=== PATIENT | male | born 1955 | race Caucasian/White ===

== ENCOUNTER 2016-07-12 16:49 | Emergency (ER) | payer OTHER ==
[2016-07-12 17:04] VITALS: BP 160/97
--- NOTE | 2016-07-12 17:19 | UC ---
Hand/Wrist HPI - HPI Summary HPI Summary: 61 yo male slipped on ice this AM and sustained a FOOSH injury right wrist. He is right handed - History Of Current Complaint Chief Complaint: UCUpperExtremity Stated Complaint: WRIST INJURY Time Seen by Provider: 07/12/16 17:06 Hx Obtained From: Patient Onset/Duration: Sudden Onset Severity Initially: Mild Severity Currently: Mild Pain Intensity: 4 Pain Scale Used: 0-10 Numeric Character Of Pain: Dull, Aching Aggravating Factor(s): Movement Alleviating: Rest, OTC Meds Associated Signs And Symptoms: Positive: Negative Related History: Dominant Hand Right - Allergies/Home Medications Allergies/Adverse Reactions: Allergies Allergy/AdvReac Type Severity Reaction Status Date / Time No Known Allergies Allergy Verified 07/12/16 16:57 Home Medications: Home Medications Acetaminophen TAB* [Tylenol TAB*] 1 tab PRN 07/12/16 [History] Aspirin EC Low Dose* [Ecotrin EC Low Dose*] 1 tab DAILY 07/12/16 [History Confirmed 07/12/16] Ibuprofen TAB* [Advil TAB*] 1 tab PRN 07/12/16 [History] Lisinopril/HCTZ 10/12.5(NF) [Zestoretic 10/12.5(NF)] 1 tab DAILY 07/12/16 [ History Confirmed 07/12/16] PMH/Surg Hx/FS Hx/Imm Hx Previously Healthy: Yes Endocrine History Of: Denies: Diabetes, Thyroid Disease Cardiovascular History Of: Reports: Hypertension Denies: Cardiac Disorders, Pacemaker/ICD Respiratory History Of: Denies: COPD, Asthma GI/ History Of: Denies: Ulcer, Renal Disease - Surgical History Surgical History: Yes Surgery Procedure, Year, and Place: Tonsilectomy - Family History Known Family History: Positive: Hypertension - Social History Alcohol Use: Rare Substance Use Type: None Smoking Status (MU): Never Smoked Tobacco Review of Systems Constitutional: Negative Skin: Negative Eyes: Negative ENT: Negative Respiratory: Negative Cardiovascular: Negative Gastrointestinal: Negative Genitourinary: Negative Motor: Negative Neurovascular: Negative Musculoskeletal: Arthralgia Neurological: Negative Psychological: Negative All Other Systems Reviewed And Are Negative: Yes Physical Exam Triage Information Reviewed: Yes Appearance: Well-Appearing, No Pain Distress, Well-Nourished Vital Signs: Initial Vital Signs Temp 98.8 F 07/12/16 17:00 Pulse 118 07/12/16 17:00 Resp 18 07/12/16 17:00 BP 160/97 07/12/16 17:00 Pulse Ox 100 07/12/16 17:00 Vital Signs Reviewed: Yes Eyes: Positive: Conjunctiva Clear ENT: Positive: Hearing grossly normal. Negative: Nasal congestion, Nasal drainage, Tonsillar exudate, Trismus, Muffled/hoarse voice Dental: Negative: Dental Fracture @ Neck: Positive: Supple Respiratory: Positive: Lungs clear, Normal breath sounds, No respiratory distress, No accessory muscle use Cardiovascular: Positive: RRR, No Murmur, Pulses Normal Bowel Sounds: Positive: Present Musculoskeletal: Positive: ROM Limited @ - right wrist Neurological: Positive: Alert Psychological: Positive: Normal Response To Family Skin Exam: Normal Hand/Wrist Course/Dx - Differential Dx/Diagnosis Provider Diagnoses: RIGHT WRIST SPRAIN-SUSPECTED TEAR OF THE RADIOULNAR LIGAMENT Discharge - Discharge Plan Condition: Stable Disposition: HOME Patient Education Materials: Wrist Sprain (ED) Referrals: Fredrick Ling MD [Medical Doctor] - As Soon As Possible (call in AM) Additional Instructions: YOUR XR SHOWED WIDENING OF THE DISTAL RADIOULNAR JOINT I SUSPECT YOU HAVE TORN SOME LIGAMENTS YOU MAY NEED AN MRI ELEVATE THUMB SPICA SPLINT TYLENOL OR ADVIL FOR PAIN Images Hands: 1 - tender
--- NOTE | 2016-07-12 17:51 | RAD ---
INDICATION: Right wrist injury. TECHNIQUE: 4 views of the right wrist were obtained. FINDINGS: There is widening of the distal radioulnar joint. The joint spaces otherwise maintained. No fracture is seen. IMPRESSION: WIDENING OF THE DISTAL RADIOULNAR JOINT CONSISTENT WITH EITHER ACUTE OR CHRONIC INJURY. IF THE PATIENT HAS SYMPTOMS OVER THIS REGION THEN RECOMMEND AN MRI OF THE WRIST FOR FURTHER EVALUATION.
== END 2016-07-12 18:30 | disposition home or self-care (01) ==
LOC: UCEAST 16:49
DX: S63.501A Unspecified sprain of right wrist, initial encounter (principal); W00.0XXA Fall on same level due to ice and snow, initial encounter; Y93.9 Activity, unspecified; Y92.9 Unspecified place or not applicable; I10 Essential (primary) hypertension
CPT/HCPCS: 99212; G0463

== ENCOUNTER → 2016-07-23 11:02 | Day surgery (SDC) | payer OTHER ==
[~2016-07-23 11:02] MED LIST: Acetaminophen TAB* 325 MG PO PRN; Bupivacaine 0.25% SDV* 30 ML ONE; Dexamethasone IV* 4 MG/ML 1 ML (4 MG) ONE; DiMENhydriNATE IV* 50 MG/ML VIAL IV PUSH PRN; EPHEDrine (Pressors)* 50 MG/ML VIAL ONE; Famotidine IV* 10 MG/ML 2 ML (20 mg) IV ONE; Famotidine IV* 10 MG/ML 2 ML (20 mg) ONE; HYDROcodone/ACETAMIN 5-325 MG* 1 TAB PO PRN; HYDROmorphone INJ* 1 MG/ML CARPUJECT SYRINGE IV PRN; Ketorolac INJ* 30 MG/ML 1 ML VIAL ONE; Lidocaine 2% PF * 5 ML VIAL ONE; Midazolam* 1 MG/ML 2 ML VIAL (2 MG) ONE; Ondansetron INJ* 2 MG/ML VIAL IV PRN; PROCHLORPERAZINE INJ 5 MG/ML 2 ML VIAL IV PRN; PROCHLORPERAZINE INJ 5 MG/ML 2 ML VIAL ONE; Propofol* 10 MG/ML 20 ML BTL IV PUSH ONE; ceFAZolin 2 GM PREMIX (*) 2 GM/50 ML BAG IVPB ONE; fentaNYL* 50 MCG/ML 2 ML VIAL (100 MCG VIAL) IV PRN; fentaNYL* 50 MCG/ML 2 ML VIAL (100 MCG VIAL) ONE
[2016-07-23 18:39] VITALS: BP 144/92
--- NOTE | 2016-07-25 13:34 | RAD ---
INDICATION: Right wrist arthroscopy, pain, trauma COMPARISONS: July 12, 2016 TECHNIQUE: Fluoroscopy was provided for a surgical procedure. Total fluoroscopy time is: 8 seconds FINDINGS: Spot images demonstrate percutaneous fixation of the distal radius and ulna IMPRESSION: FLUOROSCOPY WAS PROVIDED FOR A SURGICAL PROCEDURE CPT II Codes: 6045F
--- NOTE | 2016-07-26 06:22 | OP ---
DATE OF OPERATION: 07/23/16 - [facility] DATE OF : 59 SURGEON: Fredrick Boles MD RN MATERNAL CHILD: SUSANNA Rosen ANESTHESIOLOGIST: Dr. Sellers. ANESTHESIA: General. PRE-OP DIAGNOSIS: Right wrist peripheral triangular fibrocartilage complex tear with distal radial ulnar joint instability. POST-OP DIAGNOSES: 1. Right wrist peripheral triangular fibrocartilage complex tear. 2. Right wrist central triangular fibrocartilage complex tear in the sagittal plane. 3. Right wrist significant crystal deposition disease. 4. 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 OPERATIVE PROCEDURE: 1. Diagnostic right wrist arthroscopy. 2. Arthroscopic partial synovectomy, right wrist. 3. Arthroscopic debridement of central triangular fibrocartilage complex tear, right wrist. 4. Posterior interosseus nerve neurectomy at the level of the dorsal wrist. 5. Right wrist arthrotomy with biopsy of synovium and crystal deposition disease. 6. Open treatment of right wrist distal radioulnar joint dislocation with radioulnar pinning. 7. Right wrist distal radioulnar joint arthrotomy with open triangular fibrocartilage complex repair INDICATIONS: Alexandro is a 61-year-old male who had a fall on . He went to the emergency room due to significant pain, swelling, and ecchymosis. X-rays showed 5 mm of widening of the distal radial ulnar joint. I saw him in the clinic a couple of days later and got some contralateral comparison films which showed significant widening on the right side of the DRUJ joint. I had gotten an MRI which showed detachment of the TFCC from its foveal insertion and instability at the DRUJ with anterior gapping at the DRUJ joint. We had talked about risks and benefits. We certainly discussed the risks of postoperative stiffness and continued pain. He had elected to proceed with surgery. EBL: 20 mL. COMPLICATIONS: None. FINDINGS: Significant amount of crystalline-appearing deposits in the right wrist joint. The arthroscopic portion of the procedure showed stage III Irma instability at the scapholunate joint and some tearing of the membranous and proximal dorsal portion of the scapholunate interosseus ligament. There was also a central tear of the TFCC in the sagittal plane. The volar and dorsal attachments of the radioulnar ligaments appeared to be intact off the radius. There was a peripheral tear. DESCRIPTION OF PROCEDURE: Alexandro was seen in the preoperative holding area and the correct site and side were marked. We came back to the operating room where the anesthesia was induced and the arm was prepped and draped in the usual fashion and with wrist placed using the fingertraps and the Acumed arthroscopic traction tower. The formal time-out was performed. I then went ahead and exsanguinated the arm and inflated the tourniquet to 250 mmHg. The 3- 4 and 4-5 portals were established in standard fashion with use of a 15 blade and then the mosquito followed by the blunt trocar. The camera was placed into the 3-4 portal and the diagnostic arthroscopy was initiated. There was abundant dorsal synovium that was hemorrhagic. There was hematoma encountered inside the joint. I had introduced the shaver through the 4-5 portal to perform a partial dorsal synovectomy and a debridement and the joint noted to obtain adequate visualization. Once I had the wrist cleaned up, I was able to examine the volar extrinsic ligaments and these were then tacked. The cartilage surfaces on the scaphoid and lunate and distal radius looked good. I then swung over distally and encountered a 3- or 4-mm central tear in the TFCC in the sagittal plane. This was full thickness. I examined the anterior and dorsal attachments off the radius of the radioulnar ligaments. These appeared to be intact to me. The shaver was introduced again and the center of TFCC tear was debrided back to stable margins. I used the probe and there was polly laxity and in the TFCC. With trampoline testing with the probe, I moved up and down several millimeters and which was very loose and lax. Peripheral TFCC tear was noted. I then went ahead and established the mid carpal portals using standard technique. With the camera in the more radial portal and the probe introduced through the ulnar portal, I was able to examine the scapholunate and the lunotriquetral intervals. There was no instability of lunotriquetral joint. There was pretty significant instability of the scapholunate interval. I was almost able to but not quite able to pass the camera through the articulation. I ultimately classified this as significant stage III instability. At this point, I was concerned for given my findings in the radiocarpal joint and in the mid carpal joint for a possible concomitant scapholunate ligament tear. I went ahead and removed all the arthroscopic equipment and handed off the tower. The tourniquet was deflated. I discussed with the patient's about surgically examining the scapholunate ligament and so at this point, we went ahead. At this point, I went ahead a made a standard dorsal midline approach to the dorsal wrist coming just incorporating the 3-4 and mid carpal portal and brining the incision back in line the third metacarpal and dorsal distal radius. Dissection was carried down and full thickness flaps were raised off the extensor retinaculum. The extensor retinaculum over the third dorsal compartment was released. The EPL tendon was retracted radially after being freed up. The extensor retinacular flap was raised ulnarly. The fourth dorsal compartment tendons were retracted out of the way. The fifth dorsal compartment was similarly opened and the EDM tendon was retracted. The posterior and osseus nerve was encountered and did go ahead and excised a 2-cm segment of the distal nerve to aid in postoperative pain relief. An arthrotomy was made over the scapholunate articulation in T-shaped fashion to expose the proximal pole of the scaphoid and the dorsal aspect of the lunate. Care was taken not to injure the lunate ligament and raising up the capsule flaps. After arthrotomy, abundant deposition material had the appearance of crystalline deposits were encountered. It was really quite copious. I went ahead and took the rongeur and removed all of this crystalline deposits as well as some of the synovium there. I continued out this until I had the dorsal aspect of the wrist clean and free of all of this deposition disease. This was sent off for biopsy and analysis. I was then able to inspect the dorsal aspect of the scapholunate ligament in its entirety. Ultimately, it was degenerative and attenuated but it was not torn off after its attachment to the proximal pole of the radius or the lunate and so given his findings of what looked like crystalline deposition disease, I went ahead and decided not to do any further reconstructive efforts for the ligament. I closed the arthrotomy with some 3-0 Ethibond suture. At this point, I turned by attention ulnarly. An L-shaped arthrotomy was made exposing the distal radial ulnar joint and the TFCC. I mobilized the TFCC both distally and proximally. It was frankly detached from its insertion at the fovea. I cleaned up all of the scar tissue that was forming with a knife and then prepared further the bed of the bleeding bone with the rongeur and created a nicer recipient site for the TFCC repair. I then dislocated the DRUJ dorsally and a 0.062 K-wire was used to make two parallel drill holes through the fovea exiting out the subcutaneous border of the distal ulna proximally. I made a 2-cm longitudinal incision over the exit site of the pins. I then used Pak suture passer and some suture shuttles to pass two size 0 Ti-Cron sutures through my bony tunnels that I created with the K-wires. These were both passed through the TFCC in horizontal mattress-type fashion. One suture was placed a little bit more radial and the other suture brought through the more peripheral ulnar aspect of the TFCC. At this point, I pulled on the suture tails and excellent apposition of the TFCC into the fovea on the ulna was achieved. The DRUJ was reduced and the soft tissue was freed up around the suture tails to make sure that there was no grabbing of the dorsal ulnar sensory nerve as I then sequentially tied down to my two Ti-Cron sutures to complete the TFCC repair. I then went ahead just to aid in some additional stability to allow the soft tissues to heal and went ahead and pinned the distal ulna to the distal radius just proximal to the DRUJ with two parallel 0.062 K-wires. The wounds were then irrigated. The fluoroscopic images confirmed nice alignment of the DRUJ and that the gap between the distal radius and ulna had been closed down. I went ahead and irrigated the wound. The arthrotomy was closed with some 3-0 Ethibond suture. I brought my retinacular flap back and left the EDM tendon transposed dorsally to the retinacular flap. To further aid in stabilizing the DRUJ, I placed two 3-0 Ethibond sutures off the remaining soft tissue attachments on the radius just on the dorsal aspect of the DRUJ and sew these down through the extensor retinaculum flap in horizontal mattress-type fashion to aid in stabilizing the joint. The rest of the extensor retinaculum flap was then brought dorsal to the EDC. The EPL tendon was left transposed into the subcutaneous tissue. The extensor retinaculum was closed with some 3-0 Ethibond suture. The skin was then approximated with 3-0 Polysorb suture, closed with some 4-0 nylon suture. 0.25 % Marcaine was infiltrated into the operative area. The pins were clipped and bent in standard fashion. Wounds were dressed with Xeroform, 4x4's, sterile Webril, and a sugar-tong splint was applied. Tourniquet was deflated. It had been reinflated prior to making the dorsal incision to the wrist. There was a 10-minute tourniquet holiday during that period. The patient was then woken back up and taken to the recovery room in stable condition. [id number]/CPS #: [id number] RONEL
== END | disposition home or self-care (01) ==
LOC: OREAST 11:02
PROVIDERS: ATTEND Orthopaedic Surgery Hand Surgery
DX: S63.501A Unspecified sprain of right wrist, initial encounter (principal); I10 Essential (primary) hypertension; W19.XXXA Unspecified fall, initial encounter; Y92.9 Unspecified place or not applicable
CPT/HCPCS: 88161; 88304; C1776; J0690; J0780; J1100; J1885; J2250; J2704; J3010

== ENCOUNTER 2017-01-19 10:30 | Emergency (ER) | payer OTHER ==
[2017-01-19 10:38] VITALS: BP 155/90
--- NOTE | 2017-01-19 12:43 | UC ---
Fan Del Rosario Angela, scribed for Jaja Chen DO on 01/19/17 at 1106 . Skin Complaint HPI - HPI Summary HPI Summary: 61 y/o male presents to [facility] c/o rashes on the back of his left knee since last night. Pt describes his rashes as mildly pruritic and red. He reports he has the same sensation as prior poison kal[place] but denies spending time in the [place] for the last couple of weeks. 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 Pt denies any rash involvement of other body parts, chest pain, SOB, cough, fever, chills, vomiting , nausea, headaches. - History of Current Complaint Chief Complaint: UCSkin Time Seen by Provider: 01/19/17 10:46 Stated Complaint: BUG BITES Hx Obtained From: Patient Onset/Duration: Sudden Onset Timing: Constant Current Severity: Mild Pain Intensity: 0 - Non-painful but pruritic Pain Scale Used: 0-10 Numeric Location: Other - Behind left knee Character: Pruritus, Redness Aggravating: Nothing Alleviating: Nothing Associated Signs & Symptoms: Positive: Rash. Negative: Nausea, Vomiting, Diaphoresis, Difficulty Breathing, Fever, Chills, Cough, Chest Pain, Hoarseness , Throat Tightening, Abdominal Pain, Lightheadedness, Syncope, Tenderness - Allergy/Home Medications Allergies/Adverse Reactions: Allergies Allergy/AdvReac Type Severity Reaction Status Date / Time No Known Allergies Allergy Verified 07/23/16 11:36 Home Medications: Home Medications Ubiquinol 01/19/17 [History] Vitamin B12 01/19/17 [History] Review of Systems Constitutional: Negative Skin: Rash ENT: Negative Respiratory: Negative Cardiovascular: Negative Gastrointestinal: Negative Neurological: Negative All Other Systems Reviewed And Are Negative: Yes - Comments Additional Review of Systems Comments: NEGATIVE: chest pain, SOB, cough, fever, chills, vomiting, nausea, headaches PMH/Surg Hx/FS Hx/Imm Hx Cardiovascular History: Hypertension - Surgical History Surgical History: Yes Surgery Procedure, Year, and Place: Tonsilectomy. COLONOSCOPY X 2, [facility] - Family History Known Family History: Positive: Hypertension - Social History Alcohol Use: Rare Substance Use Type: None Smoking Status (MU): Never Smoked Tobacco Physical Exam Triage Information Reviewed: Yes Appearance: Well-Appearing, No Pain Distress, Well-Nourished Vital Signs: Initial Vital Signs Temp 97.3 F 01/19/17 10:34 Pulse 97 01/19/17 10:34 Resp 18 01/19/17 10:34 BP 155/90 01/19/17 10:34 Pulse Ox 100 01/19/17 10:34 Vital Signs Reviewed: Yes Eyes: Positive: Conjunctiva Clear. Negative: Discharge ENT: Positive: Hearing grossly normal. Negative: Muffled/hoarse voice - Normal voice Neck exam: Normal Neck: Positive: Supple Respiratory: Positive: Lungs clear, Normal breath sounds, No respiratory distress, No accessory muscle use Cardiovascular: Positive: RRR, No Murmur Musculoskeletal Exam: Normal Neurological: Positive: Alert, Muscle Tone Normal Psychological Exam: Normal Psychological: Positive: Age Appropriate Behavior Skin: Positive: rashes - Erythematous rashes on the posterior aspect of left knee. Nontender ecchymosis noted on the posterior aspect of left knee. Course/Dx - Differential Diagnoses - Skin Complaint Differential Diagnoses: Local Allergic Reaction, Scabies, Tick Born Illness, Urticaria, Other - insect bites - Diagnoses Provider Diagnoses: Insect Bite or Sting, elevated bp with dx of htn Discharge - Discharge Plan Condition: Stable Disposition: HOME Patient Education Materials: Insect Bite or Sting (ED) Referrals: Terrence Lerma MD [Primary Care Provider] - () Additional Instructions: Right now the most likely the most likely cause of your rash is bug bites. That said we should keep a close eye on this rash for changes that might indicate other causes. For now, we will try it as bug bite with cold compresses and topical agents. Follow up with pcp in 2-4 days . Follow up sooner if symptoms worsen or new symptoms develop. Please follow up with your PCP in 2-4 days regarding your rashes for any changing symptoms. forgot to address bp with pt in clinic. called pt 12:17. informed of elevated bp. pt stated that he has long standing white coat symdrom in pcp office onn first read. always normal on re-check. follow up with pcp. The documentation as recorded by the Fan tenorio Angela accurately reflects the service I personally performed and the decisions made by me, Jaja Chen DO.
== END 2017-01-19 11:47 | disposition home or self-care (01) ==
LOC: UCEAST 10:30
DX: S80.262A Insect bite (nonvenomous), left knee, initial encounter (principal); W57.XXXA Bitten or stung by nonvenomous insect and other nonvenomous arthropods, initial encounter; Y93.9 Activity, unspecified; Y99.9 Unspecified external cause status; I10 Essential (primary) hypertension
CPT/HCPCS: 99211; G0463

== ENCOUNTER 2017-08-04 08:34 | Emergency (ER) | payer OTHER ==
[2017-08-04 08:56] VITALS: BP 159/93
--- NOTE | 2017-08-04 11:28 | UC ---
Elaina Del Rosario Emily, scribed for Jaja Chen DO on 08/04/17 at 0939 . Bite Injury/Animal HPI - HPI Summary HPI Summary: This patient is a 62 year old M presenting to urgent care with a chief complaint of bite wound near the right ear that was noticed this morning. The patient rates the pain 0/10 in severity. Symptoms aggravated by nothing. Symptoms alleviated by nothing. Pt denies fever, chills, nausea, vomiting, and CP. Pt reports being concerned that the bite might be from a bat. - History of Current Complaint Chief Complaint: SAMEERkin Stated Complaint: POSS BITE/LAC Time Seen by Provider: 08/04/17 09:18 Hx Obtained From: Patient Severity Currently: Mild Severity Initially: Mild Pain Intensity: 0 Pain Scale Used: 0-10 Numeric Onset/Duration: Sudden Onset, Lasting Hours, Still Present Aggravating Factor(s): Nothing Alleviating Factor(s): Nothing Animal Control Notified: No - Allergies/Home Medications Allergies/Adverse Reactions: Allergies Allergy/AdvReac Type Severity Reaction Status Date / Time No Known Allergies Allergy Verified 07/23/16 11:36 PMH/Surg Hx/FS Hx/Imm Hx Previously Healthy: No Cardiovascular History: Hypertension Respiratory History: Other Other Respiratory History: Negative asthma - Surgical History Surgical History: Yes Surgery Procedure, Year, and Place: fx right wrist Tonsilectomy. COLONOSCOPY X 2, [facility] - Family History Known Family History: Positive: Hypertension - Social History Occupation: Employed Full-time Lives: With Family Alcohol Use: None Substance Use Type: None Smoking Status (MU): Never Smoked Tobacco Review of Systems Constitutional: Other - Negative fever and chills Skin: Other - Positive bite wound to R ear Cardiovascular: Other - Negative CP Gastrointestinal: Other - Negative nausea and vomiting All Other Systems Reviewed And Are Negative: Yes Physical Exam - Summary Physical Exam Summary: Appearance: Well-Appearing, No Pain Distress, Well-Nourished Eyes: conjunctiva clear, no discharge ENT: Hearing grossly normal, no muffled/hoarse voice. Hearing grossly normal, normal voice Neck: Normal, Supple Respiratory/Lung Sounds: Lungs clear, Normal breath sounds, No respiratory distress, No accessory muscle use Cardiovascular: RRR, No murmur Abdomen (if she checks): Nontender, Soft, no guarding, not distended Bowel Sounds (if she checks): Present Musculoskeletal: Normal Neurological: Alert, muscle tone normal Psychiatric:Normal, age appropriate behavior Skin: Warm, Dry, Normal color, Spot on his wrist where there are two little punctures wound 6 mm apart that could be consistent with a cat claw or some other type similar type of puncture. Triage Information Reviewed: Yes Vital Signs: Initial Vital Signs Temp 97.5 F 08/04/17 08:49 Pulse 86 08/04/17 08:49 Resp 16 08/04/17 08:49 BP 159/93 08/04/17 08:49 Pulse Ox 100 08/04/17 08:49 Vital Signs Reviewed: Yes Bite Injury Course/Dx - Course Course Of Treatment: This patient is a 62 year old M presenting to urgent care with a chief complaint of bite wound near the R ear that was noticed this morning. The patient will be discharged with follow up from PCP. High blood pressure noted. Medications reviewed. Allergies reviewed. - Differential Dx/Diagnosis Provider Diagnoses: Abrasion Discharge - Discharge Plan Condition: Stable Disposition: HOME Patient Education Materials: Abrasion (ED) Referrals: Terrence Lerma MD [Primary Care Provider] - The documentation as recorded by the Elaina tenorio Emily accurately reflects the service I personally performed and the decisions made by , Jaja Chen DO.
== END 2017-08-04 10:20 | disposition home or self-care (01) ==
LOC: UCEAST 08:34
DX: S00.91XA Abrasion of unspecified part of head, initial encounter (principal); S61.539A Puncture wound without foreign body of unspecified wrist, initial encounter; X58.XXXA Exposure to other specified factors, initial encounter; Y93.9 Activity, unspecified; Y92.9 Unspecified place or not applicable; I10 Essential (primary) hypertension
CPT/HCPCS: 99211; G0463

== ENCOUNTER 2018-11-05 17:54 | Emergency (ER) | payer OTHER ==
[2018-11-05 18:28] VITALS: BP 141/87
--- NOTE | 2018-11-05 18:31 | UC ---
Skin Complaint HPI - HPI Summary HPI Summary: 63 yo male presents with abscess to left index finger. He tells me that about 2 weeks ago he was working outdoors with gloves on and a thorn impacted his left hand and went through his glove and punctured his left index finger. Since that time has developed a white pustule to the area. He has tried to drain this at home with a needle and squeezing, but wasn't able to get much out. He is right handed. Denies fever. - History of Current Complaint Chief Complaint: UCSkin Time Seen by Provider: 11/05/18 18:31 Stated Complaint: SORE ON FINGER Hx Obtained From: Patient Onset/Duration: Gradual Onset Onset Severity: Moderate Current Severity: Mild Pain Intensity: 1 Pain Scale Used: 0-10 Numeric - Allergy/Home Medications Allergies/Adverse Reactions: Allergies Allergy/AdvReac Type Severity Reaction Status Date / Time No Known Allergies Allergy Verified 11/05/18 18:27 PMH/Surg Hx/FS Hx/Imm Hx Cardiovascular History: Hypertension - Surgical History Surgical History: Yes Surgery Procedure, Year, and Place: fx right wrist Tonsilectomy. COLONOSCOPY X 2, [facility] - Family History Known Family History: Positive: Hypertension - Social History Lives: With Family Alcohol Use: None Substance Use Type: None Smoking Status (MU): Never Smoked Tobacco - Immunization History Most Recent Tetanus Shot: UNKNOWN Review of Systems All Other Systems Reviewed And Are Negative: Yes Constitutional: Positive: Negative Skin: Positive: Other - Left index finger puncture wound Respiratory: Positive: Negative Cardiovascular: Positive: Negative Neurovascular: Positive: Negative Neurological: Positive: Negative Psychological: Positive: Negative Physical Exam - Summary Physical Exam Summary: GENERAL: NAD. WDWN. No pain distress. SKIN: LEFT INDEX FINGER: Finger pad with 3mm puncture wound with white/yellow pustule. Mildly TTP. No erythema or edema. CHEST: No accessory muscle use. Breathing comfortably and in no distress. CV: Pulses intact. Cap refill <2seconds NEURO: Alert. PSYCH: Age appropriate behavior. Triage Information Reviewed: Yes Vital Signs: Initial Vital Signs Temp 97.8 F 11/05/18 18:23 Pulse 99 11/05/18 18:23 Resp 16 11/05/18 18:23 BP 141/87 11/05/18 18:23 Pulse Ox 100 11/05/18 18:23 Vital Signs Reviewed: Yes Procedures - Incision and Drainage Left Finger Anesthesia: Topical - LET Instrument(s): Scalpel - #11 Packing: Other - None Course/Dx - Course Course Of Treatment: The procedure was explained to the pt and all questions were answered. A time out was performed, witnessed, and signed. The area was cleansed with an alcohol pad. LET gel was applied and let sit for ~20minues and good anesthetization was achieved. A #11 blade was used to dania the central most part of the abscess. Manual pressure was used to express thick white/yellow purulent material. Pt tolerated procedure well. Wound explored and no FB identified. Bandaged with a band-aid. Will place him on keflex for abscess. - Diagnoses Provider Diagnosis: Puncture wound of finger Discharge - Sign-Out/Discharge Documenting (check all that apply): Patient Departure All imaging exams completed and their final reports reviewed: No Studies - Discharge Plan Condition: Stable Disposition: HOME Prescriptions: Cephalexin CAP* [Keflex CAP*] 500 mg PO BID #10 cap Patient Education Materials: Abscess (ED) Referrals: Terrence Lerma MD [Primary Care Provider] - Jorge A King MD [Medical Doctor] - If Needed Additional Instructions: If you develop a fever, shortness of breath, chest pain, new or worsening symptoms - please call your PCP or go to the ED immediately. Your blood pressure was slightly elevated at todays visit. Please see your primary provider within 4 weeks for recheck and re-evaluation. 1) Change the band-aid daily until well healed (likely 3-4 days) 2) If this returns - please schedule an appointment with dermatology for further evaluation - Billing Disposition and Condition Condition: STABLE Disposition: Home
[2018-11-05] MEDS ORDERED: Lidocaine/Epineph/Tetraca GEL* 3 ML GEL IN SYR TOPICAL ONE (18:40)
== END 2018-11-05 19:36 | disposition home or self-care (01) ==
LOC: UCEAST 17:54
DX: L02.512 Cutaneous abscess of left hand (principal); I10 Essential (primary) hypertension
CPT/HCPCS: 10060; 99212; A9270-GY; G0463

== ENCOUNTER 2019-09-30 17:31 | Emergency (ER) | payer OTHER ==
--- NOTE | 2019-09-30 18:23 | UC ---
General HPI - HPI Summary HPI Summary: 64yo male presenting with tick bite on left side of abdomen that he noticed today. Patient states he removed the tick but believes some of it remains in his skin. Believes the tick was attached for 2 days. Denies the tick being engorged. Denies pain but notes some redness where the tick was attached. Denies drainage or bleeding. Denies fever, chills, body aches. Denies n/v. Patient states he "would like to be treated for lyme disease because his had a delayed diagnosis in the past." - History of Current Complaint Chief Complaint: UCSkin Stated Complaint: TICK Hx Obtained From: Patient Pain Intensity: 0 - Allergy/Home Medications Allergies/Adverse Reactions: Allergies Allergy/AdvReac Type Severity Reaction Status Date / Time No Known Allergies Allergy Verified 09/30/19 18:05 Home Medications: Home Medications Aspirin EC TAB* [Ecotrin EC Low Dose 81 MG*] 1 tab PO QAM 07/12/16 [History Confirmed 09/30/19] Lisinopril/HCTZ 03/21.5(NF) [Zestoretic (NF)] 1 tab PO QAM 07/12/16 [ History Confirmed 09/30/19] Astaxanthin 1 tab PO QAM 07/20/16 [History Confirmed 09/30/19] Glucosamine Chondroitin M 1 cap PO QAM 07/20/16 [History Confirmed 09/30/19] Ubiquinol 3 pump PO DAILY 01/19/17 [History Confirmed 09/30/19] Colchicine* [Colcrys*] 0.6 mg PO DAILY PRN 12/24/18 [History Confirmed 09/30/19] Cyanocobalamin TAB* [Vitamin B12 TAB*] 500 mcg PO DAILY 12/24/18 [History Confirmed 09/30/19] Krill Oil 500 mg PO DAILY 12/24/18 [History Confirmed 09/30/19] Ascorbic Acid/Multivit-Min [Emergen-C 1,000 mg Packet] 1,000 mg PO DAILY [History Confirmed 09/30/19] DOXYcycline CAP(*) [DOXYcycline 100MG CAP(*)] 200 mg PO ONCE #2 cap 09/30/19 [Rx ] PMH/Surg Hx/FS Hx/Imm Hx Cardiovascular History: Hypertension - Surgical History Surgical History: Yes Surgery Procedure, Year, and Place: fx right wrist Tonsilectomy. COLONOSCOPY X 2, [facility] - Family History Known Family History: Positive: Hypertension - Social History Alcohol Use: None Substance Use Type: None Smoking Status (MU): Never Smoked Tobacco - Immunization History Most Recent Tetanus Shot: UNKNOWN Review of Systems All Other Systems Reviewed And Are Negative: Yes Constitutional: Positive: Negative Skin: Positive: Other - tick bite left side abdomen Respiratory: Positive: Negative Cardiovascular: Positive: Negative Gastrointestinal: Positive: Negative Musculoskeletal: Positive: Negative Neurological/Mental Status: Positive: Negative Physical Exam - Summary Physical Exam Summary: Vital Signs Reviewed: Yes A+Ox3, no distress Eyes: Conjunctiva Clear ENT: Hearing grossly normal neck: supple Respiratory: Positive: No respiratory distress, No accessory muscle use Cardiovascular: skin color reflect adequate perfusion Musculoskeletal Exam: MILLER x 4 without difficulty Neurological: Positive: Alert, ambulatory without difficulty Psychological: Positive: age appropriate behavior Skin: Positive: ~1.5cm area of erythema on left lower abdomen where tick was attached, no warmth, no drainage, fluctuance, or bleeding, nontender Vital Signs: Vital Signs (72 hours) 09/30/19 18:27 Temperature 98.6 F Pulse Rate 101 Respiratory 16 Rate Blood Pressure 192/103 (mmHg) O2 Sat by Pulse 99 Oximetry Course/Dx - Course Course Of Treatment: I treated patient with prophylactic dose of doxycycline to prevent lyme disease. Discussed with patient that erythema is due to irritation from the bite. Instructed to apply warm compresses to the area if concerned that part of tick is still intact. I educated on s/s of infection and instructed to return or go to ED if any occur. I also educated on lyme disease and instructed to follow up with pcp with any new symptoms. Patient voiced understanding and agreed with treatment plan. I also discussed significantly elevated bp with patient and instructed to follow up with pcp within the next week to have it rechecked. - Diagnoses Provider Diagnosis: Hypertension, Tick bite of abdominal wall Discharge ED - Sign-Out/Discharge Documenting (check all that apply): Patient Departure All imaging exams completed and their final reports reviewed: No Studies - Discharge Plan Condition: Stable Disposition: HOME Prescriptions: DOXYcycline CAP(*) [DOXYcycline 100MG CAP(*)] 200 mg PO ONCE #2 cap Patient Education Materials: Tick Bite (ED), Hypertension (ED) Referrals: Breiman,Terrence, MD [Primary Care Provider] - 1 Week Additional Instructions: As discussed, take the one-time dose of doxycycline to prevent lyme disease. It is recommended that you take this with food to avoid stomach upset. No further treatment is required. Follow up with your PCP if you experience a rash where you were the tick bit you within the next month. Return or go to the emergency room if you experience fever, nausea and vomiting , or increasing redness, warmth, or drainage from the area. Your blood pressure was significantly elevated today at 192/103. It is recommended that you follow up with your primary care provider within the next week to have your blood pressure rechecked. - Billing Disposition and Condition Condition: STABLE Disposition: Home
[2019-09-30 18:28] VITALS: BP 192/103
== END 2019-09-30 18:40 | disposition home or self-care (01) ==
LOC: UCEAST 17:31
DX: S30.861A Insect bite (nonvenomous) of abdominal wall, initial encounter (principal); W57.XXXA Bitten or stung by nonvenomous insect and other nonvenomous arthropods, initial encounter; Y92.9 Unspecified place or not applicable; I10 Essential (primary) hypertension; Z79.82 Long term (current) use of aspirin; Z79.899 Other long term (current) drug therapy
CPT/HCPCS: 99212; G0463